=== PATIENT | female | born 2005 | race Caucasian/White ===

== ENCOUNTER → 2024-09-09 | Outpatient (REF) | payer OTHER ==
[2024-09-09 13:24] LABS: APPEARANCE, URINE HAZY (CLEAR); BACTERIA, URINE AUTO NEGATIVE (NEGATIVE); BILIRUBIN, URINE AUTO NEGATIVE (NEGATIVE); BLOOD, URINE BLOOD NEGATIVE (NEGATIVE); CALCIUM OXALATE CRYSTALS SMALL; COLOR, URINE YELLOW (YELLOW); GLUCOSE, URINE (UA) AUTO NEGATIVE (NEGATIVE); KETONE, URINE AUTO NEGATIVE (NEGATIVE); LEUKOCYTE ESTERASE, URINE AUTO TRACE (NEGATIVE); MUCUS, URINE SMALL (NEGATIVE); NITRITE, URINE AUTO NEGATIVE (NEGATIVE); PROTEIN, URINE AUTO NEGATIVE (NEGATIVE); RBC, URINE AUTO 1 /HPF (0-3); SPECIFIC GRAVITY URINE AUTO 1.016 (1.002-1.035); SQUAMOUS EPITHELIAL CELL UR AU 4 /HPF (0-6); UROBILINOGEN, URINE AUTO 0.2 mg/dL (0.0-2.0); WBC, URINE AUTO 0 /HPF (0-3)
== END ==
LOC: M SMT 12:49
PROVIDERS: ATTEND Nurse Practitioner Family
DX: R30.0 Dysuria (principal)

== ENCOUNTER → 2024-10-23 | Outpatient (CLI) | payer OTHER | LOC: M PLAIMG 15:39 | DX: M25.561 Pain in right knee (principal) ==

== ENCOUNTER → 2024-12-15 | Outpatient (CLI) | payer OTHER ==
[~2024-12-15] MED LIST: METHACHOLINE KIT (6 VIAL.NEB PREMIX) INH ONE
== END ==
LOC: M CARPUL 08:06
PROVIDERS: ATTEND Physician Assistant
DX: R06.02 Shortness of breath (principal)
CPT/HCPCS: 81001; 87086; 94070; 95070; J7674

== ENCOUNTER → 2025-01-15 | Outpatient (REF) | payer OTHER ==
[2025-01-15 14:07] LABS: BASO # 0.0 10^3/uL (0.0-0.2); BASO % 0.6 % (0.0-1.0); EOS # 0.1 10^3/uL (0.0-0.5); EOS % 1.5 % (0.0-3.0); LYMPH # 2.4 10^3/uL (1.5-5.0); LYMPH % 33.1 % (24.0-44.0); MONO # 0.6 10^3/uL (0.0-0.8); MONO % 8.7 % (2.0-8.0); NEUTROPHILS # 4.0 10^3/uL (1.5-8.5); NEUTROPHILS % 55.8 % (36.0-66.0); PLATELET COUNT, AUTOMATED 335 10^3/uL (150-450)
[2025-01-15 14:35] LABS: IRON (FE) 116 UG/DL (50-170); PERCENT SATURATION 35.8 % (13.2-45.0)
[2025-01-15 14:36] LABS: ALT/SGPT 22 U/L (7.0-40); AST/SGOT 21 U/L (<34); CALCIUM LEVEL 8.9 MG/DL (8.5-10.1); CARBON DIOXIDE LEVEL 26 MMOL/L (20-31); CHLORIDE LEVEL 104 MMOL/L (98-107); CREATININE FOR GFR 0.73 MG/DL (0.55-1.30); GLOMERULAR FILTRATION RATE > 90.0 (>60); POTASSIUM SERUM 4.3 MMOL/L (3.5-5.1); SODIUM LEVEL 143 MMOL/L (136-145)
[2025-01-15 14:38] LABS: FREE T4 1.22 NG/DL (0.83-1.43)
[2025-01-15 14:40] LABS: THYROGLOBULIN ANTIBODY 145.0 U/ML (<60.0); THYROID PEROXIDASE ANTIBODY 38 U/ML (<60.0)
== END ==
LOC: M LAB REF 12:53
PROVIDERS: ATTEND Physician Assistant
DX: E06.3 Autoimmune thyroiditis (principal); R68.89 Other general symptoms and signs

== ENCOUNTER → 2025-01-20 | Outpatient (CLI) | payer OTHER | LOC: M PLAIMG 07:05 | PROVIDERS: ATTEND Orthopaedic Surgery | DX: M76.51 Patellar tendinitis, right knee (principal); M67.51 Plica syndrome, right knee ==

== ENCOUNTER → 2025-02-18 | Outpatient (CLI) | payer OTHER | LOC: M PLAIMG 12:12 | PROVIDERS: ATTEND Internal Medicine Gastroenterology | DX: R14.0 Abdominal distension (gaseous) (principal); K58.1 Irritable bowel syndrome with constipation ==

== ENCOUNTER 2025-02-19 12:28 | Outpatient (RCR) | payer OTHER | END 2025-02-21 | LOC: M PT 12:28 | PROVIDERS: ATTEND Orthopaedic Surgery | DX: M76.51 Patellar tendinitis, right knee (principal) ==

== ENCOUNTER 2025-03-01 14:20 | Outpatient (RCR) | payer OTHER | END 2025-03-23 | LOC: M PT 14:20 | PROVIDERS: ATTEND Orthopaedic Surgery | DX: M76.51 Patellar tendinitis, right knee (principal) ==

== ENCOUNTER → 2025-03-15 | Outpatient (REF) | payer OTHER ==
[2025-03-15 15:23] LABS: APPEARANCE, URINE HAZY (CLEAR); BACTERIA, URINE AUTO 1+ (NEGATIVE); BILIRUBIN, URINE AUTO NEGATIVE (NEGATIVE); BLOOD, URINE BLOOD 2+ (NEGATIVE); CALCIUM OXALATE CRYSTALS SMALL; GLUCOSE, URINE (UA) AUTO NEGATIVE (NEGATIVE); KETONE, URINE AUTO NEGATIVE (NEGATIVE); LEUKOCYTE ESTERASE, URINE AUTO NEGATIVE (NEGATIVE); MUCUS, URINE LARGE (NEGATIVE); NITRITE, URINE AUTO POSITIVE (NEGATIVE); PROTEIN, URINE AUTO 1+ mg/dL (NEGATIVE); RBC, URINE AUTO 6 /HPF (0-3); SPECIFIC GRAVITY URINE AUTO 1.028 (1.002-1.035); SQUAMOUS EPITHELIAL CELL UR AU 1 /HPF (0-6); UROBILINOGEN, URINE AUTO 4.0 mg/dL (0.0-2.0); WBC, URINE AUTO 14 /HPF (0-3)
== END ==
LOC: M LABSMT 11:40
PROVIDERS: ATTEND Nurse Practitioner Family
DX: R30.0 Dysuria (principal)

== ENCOUNTER 2025-04-15 06:23 | Day surgery (SDC) | payer OTHER ==
[~2025-04-15] VITALS: Ht 165.1 cm; Wt 63.3 kg
[~2025-04-15 06:23] MED LIST changes: +ALPR0.25 PO; +ARNU1INH PO; +LEVO50TA5 PO; +LINZ72CA PO; -METHACHOLINE KIT (6 VIAL.NEB PREMIX) INH ONE; +ONDA-282 PO; +SERT50TA29 PO; +TRAM1CAP15 PO; +UBRO50TA PO
[2025-04-15] MEDS ORDERED: MIDAZOLAM INJ 2 MG/2 ML VIAL As Ordered ONE (06:51)
[2025-04-15] MEDS ORDERED: HYDROmorphone HCL 2 MG/ML 1 ML VIAL As Ordered ONE (06:51)
[2025-04-15] MEDS ORDERED: KETOROLAC 30 MG/ML 1 ML VIAL As Ordered ONE (06:53)
[2025-04-15] MEDS ORDERED: ONDANSETRON 4MG 2ML VIAL As Ordered ONE (06:53)
[2025-04-15] MEDS ORDERED: LIDOCAINE 2% 100 MG/5 ML SDV (FOR ANES.) As Ordered ONE (06:53)
[2025-04-15] MEDS ORDERED: dexAMETHasone 4 MG/ML 1 ML VIAL As Ordered ONE (06:53)
[2025-04-15] MEDS: ceFAZolin SOD 2 GM IV ONCE IV ONE (07:47)
[2025-04-15] MEDS ORDERED: PHENYLephrine 500MCG 5ML (100MCG/ML) SYRINGE As Ordered ONE (07:59)
[2025-04-15] MEDS ORDERED: KETAMINE HCL 200 MG/20 ML VIAL As Ordered ONE (08:06)
[2025-04-15] MEDS ORDERED: GLYCOPYRROLATE INJ 0.2 MG/ML 2 ML VIAL As Ordered ONE (08:09)
[2025-04-15] MEDS ORDERED: dexmedeTOMIDine (4 MCG/ML) 200 MCG/50 ML BTL As Ordered ONE (08:30)
[2025-04-15] MEDS: EPINEPHrine 1 MG/ML INJ 30 ML MD-VIAL As Ordered ONE (08:41)
[2025-04-15] MEDS ORDERED: HYDROMORPHONE HCL 0.5 MG/0.5 ML SYRINGE IV PRN (08:50)
[2025-04-15] MEDS ORDERED: TRAM50TA2 PO (09:09)
[2025-04-15] MEDS ORDERED: CELE100C PO (09:09)
[2025-04-15] MEDS ORDERED: ECOT325T5 PO (09:09)
[2025-04-15 09:16] VITALS: BP 134/66
[2025-04-15] MEDS: METOPROLOL 5 MG/5 ML VIAL IV STA (09:16)
[2025-04-15] MEDS ORDERED: METOPROLOL 5 MG/5 ML VIAL As Ordered ONE (09:17)
[2025-04-15] MEDS: ONDANSETRON 4MG 2ML VIAL IV PRN (09:31)
[2025-04-15 11:50] VITALS: BP 101/59; TEMP 98; O2SAT 95
== END 2025-04-15 12:25 | disposition home or self-care (01) ==
LOC: M SDC 06:23
PROVIDERS: ATTEND Orthopaedic Surgery
DX: M67.51 Plica syndrome, right knee (principal); E03.9 Hypothyroidism, unspecified; K58.9 Irritable bowel syndrome, unspecified; J45.909 Unspecified asthma, uncomplicated; Z79.899 Other long term (current) drug therapy; Z79.890 Hormone replacement therapy
CPT/HCPCS: 29875; 81025; J0165; J0616; J0665; J0688; J1100; J1171; J1596; J1885; J2250; J2371; J2405; J2765

== ENCOUNTER → 2025-04-19 | Outpatient (CLI) | payer OTHER ==
[~2025-04-19] MED LIST changes: +CELE100C PO; +ECOT325T5 PO; +TRAM50TA2 PO
[2025-04-19 16:03] LABS: HCG, SERUM QUANTITATIVE < 2.6 MIU/ML (<4.2)
[2025-04-19 16:04] LABS: FREE T4 1.13 NG/DL (0.83-1.43)
[2025-04-19 16:05] LABS: ALT/SGPT 19 U/L (7.0-40); AST/SGOT 20 U/L (<34); CALCIUM LEVEL 9.3 MG/DL (8.5-10.1); CARBON DIOXIDE LEVEL 27 MMOL/L (20-31); CHLORIDE LEVEL 103 MMOL/L (98-107); CREATININE FOR GFR 0.70 MG/DL (0.55-1.30); GLOMERULAR FILTRATION RATE > 90.0 (>60); LUTEINIZING HORMONE 6.0 mIU/ML; POTASSIUM SERUM 4.5 MMOL/L (3.5-5.1); PROLACTIN 9.01 NG/ML; SODIUM LEVEL 141 MMOL/L (136-145)
[2025-04-19 16:06] LABS: ESTRADIOL 38.6 PG/ML
[2025-04-21 11:02] LABS: DEHYDROEPIANDROSTERONE SULFATE 106 mcg/dL (44-286)
== END ==
LOC: M PLALAB 13:54
PROVIDERS: ATTEND Physician Assistant Medical
DX: Z31.41 Encounter for fertility testing (principal)

== ENCOUNTER 2025-05-13 12:00 | Outpatient (RCR) | payer OTHER | END 2025-05-23 | LOC: M PT 12:00 | PROVIDERS: ATTEND Orthopaedic Surgery | DX: M67.51 Plica syndrome, right knee (principal) ==

== ENCOUNTER 2025-06-04 12:00 | Outpatient (RCR) | payer OTHER | END 2025-06-23 | LOC: M PT 12:00 | PROVIDERS: ATTEND Orthopaedic Surgery | DX: M67.51 Plica syndrome, right knee (principal) ==

== ENCOUNTER → 2025-06-12 | Outpatient (CLI) | payer OTHER | LOC: M EKG 13:09 | PROVIDERS: ATTEND Physician Assistant | DX: R00.0 Tachycardia, unspecified (principal); Z53.9 Procedure and treatment not carried out, unspecified reason ==

== ENCOUNTER → 2025-06-21 | Outpatient (CLI) | payer OTHER | LOC: M SLEEP 07:40 | PROVIDERS: ATTEND Physician Assistant | DX: R25.9 Unspecified abnormal involuntary movements (principal) ==

== ENCOUNTER → 2025-06-21 | Outpatient (CLI) | payer OTHER | LOC: M SLEEP HO 07:53 | PROVIDERS: ATTEND Physician Assistant | DX: G47.09 Other insomnia (principal); R06.83 Snoring ==